=== PATIENT | male | born 1985 | race African-American/Black ===

== ENCOUNTER 2021-05-10 03:00 | Emergency (ER) | payer OTHER ==
[~2021-05-10] VITALS: Ht 175.3 cm; Wt 80.7 kg
[2021-05-10] MEDS ORDERED: FLEXERIL PO (04:20)
[2021-05-10 04:35] VITALS: BP 174/111
== END 2021-05-10 05:10 | disposition home or self-care (01) ==
LOC: ER 03:00
DX: S39.012A Strain of muscle, fascia and tendon of lower back, initial encounter (principal); S63.502A Unspecified sprain of left wrist, initial encounter; I10 Essential (primary) hypertension; V49.59XA Passenger injured in collision with other motor vehicles in traffic accident, initial encounter; Y93.89 Activity, other specified; Y92.488 Other paved roadways as the place of occurrence of the external cause; Y99.8 Other external cause status